=== PATIENT | female | born 1960 | race Caucasian/White ===

== ENCOUNTER 2018-02-24 04:47 | Emergency (ER) | payer MEDICAID, MEDICARE ==
[2018-02-24] MEDS ORDERED: BENZONATATE 100 MG CAPSULE PO ONE (06:31)
--- NOTE | 2018-02-24 07:02 | ER Document Report ---
ED General - General Chief Complaint: Cough Stated Complaint: COUGH Time Seen by Provider: 02/24/18 06:08 TRAVEL OUTSIDE OF THE [place] IN LAST 30 DAYS: No - HPI Patient complains to provider of: Cough Notes: Cough ongoing for the last 24 hours patient states possibly having a fever at home feeling hot however no temperature was taken. Patient states white sputum patient does smoke approximately half pack to a pack a day. Patient denies any recent travel denies any recent antibiotics. Denies any past medical history denies chills night sweats nausea vomiting denies any sick contacts of her was recently in the hospital receiving daily dialysis. Patient is currently upon my evaluation states she is having a little bit of sinus congestion and postnasal drip. - Related Data Allergies/Adverse Reactions: penicillin G Allergy (Verified 02/24/18 06:29) Past Medical History - Social History Smoking Status: Current Every Day Smoker Chew tobacco use (# tins/day): No Frequency of alcohol use: None Drug Abuse: None Family History: Reviewed & Not Pertinent Patient has suicidal ideation: No Patient has homicidal ideation: No Renal/ Medical History: Denies: Hx Peritoneal Dialysis Musculoskeltal Medical History: Reports Hx Arthritis Past Surgical History: Reports: Hx Cholecystectomy Review of Systems - Review of Systems Constitutional: No symptoms reported EENT: No symptoms reported Cardiovascular: No symptoms reported Respiratory: Cough Gastrointestinal: No symptoms reported Genitourinary: No symptoms reported Female Genitourinary: No symptoms reported Musculoskeletal: No symptoms reported Skin: No symptoms reported Hematologic/Lymphatic: No symptoms reported Neurological/Psychological: No symptoms reported -: Yes All other systems reviewed and negative Physical Exam - Vital signs Vitals: Temp Pulse Resp BP Pulse Ox 98.7 F 63 18 136/70 H 95 02/24/18 04:56 02/24/18 04:56 02/24/18 04:56 02/24/18 04:56 02/24/18 04:56 Interpretation: Normal - General General appearance: Appears well, Alert - HEENT Head: Normocephalic, Atraumatic Eyes: Normal Pupils: PERRL - Respiratory Respiratory status: No respiratory distress Chest status: Nontender Breath sounds: Normal Chest palpation: Normal - Cardiovascular Rhythm: Regular Heart sounds: Normal auscultation Murmur: No - Abdominal Inspection: Normal Distension: No distension Bowel sounds: Normal Tenderness: Nontender Organomegaly: No organomegaly - Back Back: Normal, Nontender - Extremities General upper extremity: Normal inspection, Nontender, Normal color, Normal ROM , Normal temperature General lower extremity: Normal inspection, Nontender, Normal color, Normal ROM , Normal temperature, Normal weight bearing. No: Remi's sign - Neurological Neuro grossly intact: Yes Cognition: Normal Orientation: AAOx4 Abhishek Coma Scale Eye Opening: Spontaneous [place] Coma Scale Verbal: Oriented Abhishek Coma Scale Motor: Obeys Commands [place] Coma Scale Total: 15 Speech: Normal Motor strength normal: LUE, RUE, LLE, RLE Sensory: Normal - Psychological Associated symptoms: Normal affect, Normal mood - Skin Skin Temperature: Warm Skin Moisture: Dry Skin Color: Normal Course - Re-evaluation Re-evalutation: 02/24/18 07:02 Patient's lungs are clear patient is very concerned she may have pneumonia. History of subjective fevers will check chest x-ray otherwise do think patient more likely has sinus drainage causing her symptoms patient pending x-ray 02/24/18 13:31 Patient would continue a cough and some sputum production. Concern for underlying bronchitis due to the patient's significant smoking history. Will treat with Zithromax bronchodilators and prednisone. Patient discharged home - Vital Signs Vital signs: Temp Pulse Resp BP Pulse Ox 98.4 F 55 L 18 123/67 95 02/24/18 07:52 02/24/18 07:52 02/24/18 07:52 02/24/18 07:52 02/24/18 07:52 Discharge - Discharge Clinical Impression: Bronchitis Condition: Stable Disposition: HOME, SELF-CARE Instructions: Bronchitis ([facility]) Additional Instructions: No signs of pneumonia on chest x-ray. Would recommend taking medications as prescribed to believe you have possibly underlying bronchitis from nasal drip and smoking. Please stop smoking return to the ER if symptoms worsen may take Tylenol Motrin for pain fever also recommend taking [id number] honey for cough suppression Prescriptions: Benzonatate [Tessalon Perle 100 mg Capsule] 100 mg PO Q8HP PRN #40 cap PRN Reason: Azithromycin [Zithromax 250 mg Tablet] 250 mg PO DAILY #4 tablet Prednisone [Deltasone 20 mg Tablet] 3 tab PO DAILY 5 Days tablet Forms: Smoking Cessation Education, Return to Work Referrals: EL SARKAR MD [Primary Care Provider] - Follow up as needed
[2018-02-24] MEDS ORDERED: ALBUTEROL SULFATE HFA (90 MCG/PUFF) 8 GM MDI (1 MDI/ER DISP) IH ONE (07:52)
[2018-02-24 07:53] VITALS: BP 123/67
[2018-02-24] MEDS ORDERED: AZITHROMYCIN 250 MG TABLET PO ONE (07:56)
--- NOTE | 2018-02-24 07:56 | RADIOLOGY REPORT (SQ) ---
EXAM DESCRIPTION: CHEST 2 VIEWS COMPLETED DATE/TIME: 02/24/2018 7:06 am REASON FOR STUDY: cough COMPARISON: None. EXAM PARAMETERS: NUMBER OF VIEWS: two views TECHNIQUE: Digital Frontal and Lateral radiographic views of the chest acquired. RADIATION DOSE: NA LIMITATIONS: none FINDINGS: LUNGS AND PLEURA: No opacities, masses or pneumothorax. No pleural effusion. MEDIASTINUM AND HILAR STRUCTURES: Slight symmetrical prominence of hilar regions -probably confluence of vascular markings. HEART AND VASCULAR STRUCTURES: Heart normal size. No evidence for failure. BONES: No acute findings. HARDWARE: None in the chest. OTHER: No other significant finding. IMPRESSION: No active infiltrates or effusions. Slight symmetrical hilar regions probably secondary to confluence of vascular markings. TECHNICAL DOCUMENTATION: JOB ID: [id number] [employer]- All Rights Reserved Reading location - IP/workstation name: [email or web address]
== END 2018-02-24 08:17 | disposition home or self-care (01) ==
LOC: ER 04:47
DX: J40 Bronchitis, not specified as acute or chronic (principal); F17.200 Nicotine dependence, unspecified, uncomplicated; Z88.0 Allergy status to penicillin; Z90.49 Acquired absence of other specified parts of digestive tract
CPT/HCPCS: 99283; 71046; A9270 ×2; J3490

== ENCOUNTER 2018-05-03 23:28 | Emergency (ER) | payer MEDICARE, MEDICAID ==
[2018-05-04] MEDS ORDERED: CLINDAMYCIN HCL 150 MG CAPSULE PO ONE (01:04)
[2018-05-04] MEDS ORDERED: IBUPROFEN 600 MG TABLET PO ONE (01:04)
--- NOTE | 2018-05-04 01:08 | ER Document Report ---
ED Oral Problem - General Chief Complaint: Jaw Pain Stated Complaint: JAW PAIN Time Seen by Provider: 05/04/18 00:58 Notes: The patient is a 57-year-old female who presents with mild swelling of her left jaw. She saw her dentist last week for similar symptoms and is scheduled for a cleaning tomorrow. She said the swelling has slightly worsened. Denies difficulty swallowing, tongue elevation, dental pain, trismus, fevers or rash. TRAVEL OUTSIDE OF THE [place] IN LAST 30 DAYS: No - Related Data Allergies/Adverse Reactions: adalimumab [From Humira] Allergy (Verified 05/03/18 23:34) etanercept [From Enbrel] Allergy (Verified 05/03/18 23:34) penicillin G Allergy (Verified 02/24/18 06:29) Past Medical History - General Information source: Patient - Social History Smoking Status: Current Every Day Smoker Chew tobacco use (# tins/day): No Frequency of alcohol use: None Drug Abuse: None Family History: Reviewed & Not Pertinent Patient has suicidal ideation: No Patient has homicidal ideation: No Renal/ Medical History: Denies: Hx Peritoneal Dialysis Musculoskeletal Medical History: Reports Hx Arthritis Past Surgical History: Reports: Hx Cholecystectomy Review of Systems - Review of Systems Constitutional: denies: Chills, Fever EENT: Mouth pain, Mouth swelling. denies: Throat swelling Cardiovascular: denies: Chest pain Respiratory: denies: Hurts to breathe Physical Exam - Vital signs Vitals: Temp Pulse Resp BP Pulse Ox 98.6 F 62 16 152/85 H 96 05/03/18 23:38 05/03/18 23:38 05/03/18 23:38 05/03/18 23:38 05/03/18 23:38 - Notes Notes: PHYSICAL EXAMINATION: GENERAL: Well-appearing, well-nourished and in no acute distress. HEAD: Atraumatic, normocephalic. EYES: Pupils equal round and reactive to light, extraocular movements intact, sclera anicteric, conjunctiva are normal. ENT: nares patent, oropharynx clear without exudates. Mild swelling of left lower jaw. Poor dentition, but no intraoral abscess seen. Moist mucous membranes. NECK: Normal range of motion, supple with small left-sided anterior cervical lymphadenopathy LUNGS: Breath sounds clear to auscultation bilaterally and equal. No wheezes rales or rhonchi. HEART: Regular rate and rhythm without murmurs ABDOMEN: Soft, nontender, normoactive bowel sounds. No guarding, no rebound. No masses appreciated. EXTREMITIES: Normal range of motion, no pitting or edema. No cyanosis. NEUROLOGICAL: Cranial nerves grossly intact. Normal speech, normal gait. Normal sensory and motor exams. SKIN: Warm, Dry, normal turgor, no rashes or lesions noted. Course - Re-evaluation Re-evalutation: Patient has no evidence of airway obstruction. Her symptoms are not consistent with mastoiditis with Maximo's angina. Will treat suspected dental abscess with clindamycin and follow-up with dentist this week. - Vital Signs Vital signs: Temp Pulse Resp BP Pulse Ox 97.5 F 57 L 16 154/85 H 94 05/04/18 01:23 05/04/18 01:23 05/04/18 01:23 05/04/18 01:23 05/04/18 01:23 Discharge - Discharge Clinical Impression: Jaw pain Condition: Stable Disposition: HOME, SELF-CARE Additional Instructions: Take the antibiotics and use Motrin as prescribed. Keep your appointment with the dentist this week. Prescriptions: Ibuprofen [Motrin 600 mg Tablet] 600 mg PO Q8HP PRN #20 tablet PRN Reason: Clindamycin HCl 300 mg PO Q8H 7 Days capsule Forms: Elevated Blood Pressure Referrals: EL SARKAR MD [Primary Care Provider] - Follow up as needed
[2018-05-04 01:27] VITALS: BP 154/85
== END 2018-05-04 01:27 | disposition home or self-care (01) ==
LOC: ER 23:28
DX: R68.84 Jaw pain (principal); R22.0 Localized swelling, mass and lump, head; F17.200 Nicotine dependence, unspecified, uncomplicated; Z88.8 Allergy status to other drugs, medicaments and biological substances; Z88.0 Allergy status to penicillin
CPT/HCPCS: 99283; A9270 ×2

== ENCOUNTER 2018-06-11 20:44 | Emergency (ER) | payer MEDICARE, MEDICAID ==
--- NOTE | 2018-06-11 23:24 | ER Document Report ---
ED Medical Screen (RME) - General Chief Complaint: Diarrhea Stated Complaint: DIARRHEA Time Seen by Provider: 06/11/18 23:01 Mode of Arrival: Ambulatory Information source: Patient Notes: Patient is a 57-year-old female who presents with chief complaint of diarrhea over the last 5 days. Patient reports associated nausea but denies any vomiting or fever. Patient reports she is going multiple times daily and describes the diarrhea as white, with mucus present and what appears to be noodles in it. Denies any blood in the stool. Denies any recent antibiotic use. Exam: Mild tenderness to palpation across the mid abdomen. I have greeted and performed a rapid initial assessment of this patient. A comprehensive ED assessment and evaluation of the patient, analysis of test results and completion of the medical decision making process will be conducted by additional ED providers. Dictation of this chart was performed using voice recognition software; therefore, there may be some unintended grammatical errors. TRAVEL OUTSIDE OF THE [place] IN LAST 30 DAYS: No - Related Data Allergies/Adverse Reactions: adalimumab [From Humira] Allergy (Verified 05/03/18 23:34) etanercept [From Enbrel] Allergy (Verified 05/03/18 23:34) penicillin G Allergy (Verified 02/24/18 06:29) Past Medical History Renal/ Medical History: Denies: Hx Peritoneal Dialysis Musculoskeltal Medical History: Reports Hx Arthritis Past Surgical History: Reports: Hx Cholecystectomy Physical Exam - Vital signs Vitals: Temp Pulse Resp BP Pulse Ox 99.7 F 72 16 125/64 97 06/11/18 21:05 06/11/18 21:05 06/11/18 21:05 06/11/18 21:05 06/11/18 21:05 Course - Vital Signs Vital signs: Temp Pulse Resp BP Pulse Ox 99.7 F 72 16 125/64 97 06/11/18 21:05 06/11/18 21:05 06/11/18 21:05 06/11/18 21:05 06/11/18 21:05 Doctor's Discharge - Discharge Referrals: EL SARKAR MD [Primary Care Provider] - Follow up as needed
[2018-06-11 23:44] LABS: ABSOLUTE BASOPHILS # (AUTO) 0.1 10^3/uL (0.0-0.2); ABSOLUTE EOSINOPHILS # (AUTO) 0.2 10^3/uL (0.0-0.6); ABSOLUTE NEUT (AUTO) 6.7 10^3/uL (1.7-8.2); BASOPHILS % (AUTO) 1.1 % (0-2); EOSINOPHILS % (AUTO) 1.4 % (0-6); HEMATOCRIT 45.3 % (36.0-47.0); HEMOGLOBIN 14.9 g/dL (12.0-15.5); MEAN CORPUSCULAR HEMOGLOBIN 29.8 pg (27.0-33.4); MEAN CORPUSCULAR VOLUME 90 fl (80-97); MONOCYTES % (AUTO) 8.2 % (3-13); PLATELET COUNT 299 10^3/uL (150-450); RED BLOOD COUNT 5.01 10^6/uL (3.72-5.28); RED CELL DISTRIBUTION WIDTH 14.5 % (11.5-14.0); SEGMENTED NEUTROPHILS % (AUTO) 56.3 % (42-78); TOTAL CELLS COUNTED % (AUTO) 100 %
[2018-06-12 00:05] LABS: ALANINE AMINOTRANSFERASE 26 U/L (9-52); ALBUMIN 4.3 g/dL (3.5-5.0); ALKALINE PHOSPHATASE 80 U/L (38-126); ANION GAP 9 (5-19); ASPARTATE AMINO TRANSFERASE 19 U/L (14-36); BILIRUBIN,DIRECT 0.3 mg/dL (0.0-0.4); BILIRUBIN,TOTAL 0.3 mg/dL (0.2-1.3); BLOOD UREA NITROGEN 19 mg/dL (7-20); CALCIUM 9.8 mg/dL (8.4-10.2); CARBON DIOXIDE 29 mmol/L (22-30); CHLORIDE 105 mmol/L (98-107); GLUCOSE 98 mg/dL (75-110); LIPASE 52.6 U/L (23-300); POTASSIUM 4.8 mmol/L (3.6-5.0); SODIUM 143.4 mmol/L (137-145); TOTAL PROTEIN 7.1 g/dL (6.3-8.2)
[2018-06-12] MEDS ORDERED: METRONIDAZOLE 500 MG TABLET PO ONE (01:31)
--- NOTE | 2018-06-12 01:32 | ER Document Report ---
ED General - General Chief Complaint: Diarrhea Stated Complaint: DIARRHEA Time Seen by Provider: 06/11/18 23:01 Mode of Arrival: Ambulatory Notes: Patient is a 57-year-old female presents with complaint of diarrhea. There is been ongoing for 5 days. No blood in her stool. She said sometimes her some stringy type things in her stool. She says it does not move and did not appear to be warms. She did just finish an antibiotic. She was on clindamycin due to a dental infection. Some abdominal pain that is permanent diffuse. No fevers. No vomiting. No other complaints at this time. Exposure to untreated water. She drinks only bottled water. No recent travel outside the country. TRAVEL OUTSIDE OF THE [place] IN LAST 30 DAYS: No - Related Data Allergies/Adverse Reactions: adalimumab [From Humira] Allergy (Verified 05/03/18 23:34) etanercept [From Enbrel] Allergy (Verified 05/03/18 23:34) penicillin G Allergy (Verified 02/24/18 06:29) Past Medical History - General Information source: Patient - Social History Smoking Status: Unknown if Ever Smoked Frequency of alcohol use: None Drug Abuse: None Family History: Reviewed & Not Pertinent Renal/ Medical History: Denies: Hx Peritoneal Dialysis Musculoskeletal Medical History: Reports Hx Arthritis Past Surgical History: Reports: Hx Cholecystectomy Review of Systems - Review of Systems Notes: My Normal Review Basic REVIEW OF SYSTEMS: CONSTITUTIONAL : Denies fever, chills, or sweats. Denies recent illness. EENT: Denies eye, ear, throat, or mouth pain or symptoms. Denies nasal or sinus congestion. RESPIRATORY: Denies cough, cold, or chest congestion. Denies shortness of breath, difficulty breathing, or wheezing. GASTROINTESTINAL: Abdominal pain. diarrhea. GENITOURINARY: Denies difficulty urinating, painful urination, burning, frequency, or blood in urine. MUSCULOSKELETAL: Denies neck or back pain or joint pain or swelling. SKIN: Denies rash or skin lesions. NEUROLOGICAL: Denies altered mental status or loss of consciousness. Denies headache. Denies weakness or paralysis or loss of use of either side. Denies problems with gait or speech. Denies sensory or motor loss. ALL OTHER SYSTEMS REVIEWED AND NEGATIVE. Physical Exam - Vital signs Vitals: Temp Pulse Resp BP Pulse Ox 99.7 F 72 16 125/64 97 06/11/18 21:05 06/11/18 21:05 06/11/18 21:05 06/11/18 21:05 06/11/18 21:05 - Notes Notes: General Appearance: Well nourished, alert, cooperative, no acute distress, no obvious discomfort. Vitals: reviewed, See vital signs table. Head: no swelling or tenderness to the head Eyes: PERRL, EOMI, Conjuctiva clear Mouth: No decreasd moisture Lungs: No wheezing, No rales, No rhonci, No accessory muscle use, good air exchange bilaterally. Heart: Normal rate, Regular rythm, No murmur, no rub Abdomen: Normal BS, soft, No rigidity, mild abdominal tenderness diffuse that is slightly worse on the left, No guarding, no rebound Extremities: strength 5/5 in all extremities, good pulses in all extremities, no swelling or tenderness in the extremities, no edema. Skin: warm, dry, appropriate color, no rash Neuro: speech clear, oriented x 3, normal affect, responds appropriately to questions. Course - Re-evaluation Re-evalutation: 06/12/18 02:43 Patient's history suggests that this could be C. difficile infection causing diarrhea being that she just finished a course of clindamycin. Patient clinically looks very well. Laboratory findings are unremarkable. She was unable to give a stool sample here and therefore I have ordered a stool culture , ova and parasites, and C. difficile testing to be done out patiently. I have written a prescription for this. I informed her return to ER immediately if she has fevers, worsening abdominal pain, any blood in her stool, or if she feels that she is worsening in any way. Patient agrees with plan will be discharged home. Dictation of this chart was performed using voice recognition software; therefore, there may be some unintended grammatical errors. - Vital Signs Vital signs: Temp Pulse Resp BP Pulse Ox 98.2 F 72 18 144/70 H 97 06/12/18 01:50 06/11/18 21:05 06/12/18 01:50 06/12/18 01:50 06/11/18 21:05 - Laboratory Result Diagrams: 06/11/18 23:24 06/11/18 23:24 Laboratory results interpreted by me: 06/11/18 23:24 WBC 12.0 H RDW 14.5 H Discharge - Discharge Additional Instructions: I suspect you have a bacterial infection in your bowel called C.Diff. I have started you on a new antibiotic. Please take this antibiotic as prescribed. Please still obtain a stool sample and bring it in the provided specimen cup to the hospital lab with the prescription. Please call the culture call back number ([phone]) if you have not gotten your results after 2 days. Please return to the Er immediately if you develop fevers, blood in your stool, worsening pain, or feel that you are worsening in any way. Prescriptions: Metronidazole [Flagyl 500 mg Tablet] 500 mg PO Q6H #28 tablet Forms: Follow-Up Laboratory Testing
[2018-06-12 01:52] VITALS: BP 144/70
== END 2018-06-12 01:50 | disposition home or self-care (01) ==
LOC: ER 20:44
DX: R19.7 Diarrhea, unspecified (principal); R10.9 Unspecified abdominal pain
CPT/HCPCS: 36415; 80053; 83690; 85025; 99284

== ENCOUNTER 2018-12-17 17:01 | Emergency (ER) | payer MEDICARE, MEDICAID ==
[2018-12-17 17:31] VITALS: BP 154/87
--- NOTE | 2018-12-17 18:16 | EKG REPORT ---
SEVERITY:- BORDERLINE ECG - SINUS RHYTHM PROBABLE LEFT ATRIAL ABNORMALITY : Confirmed by: Mi Peoples MD 17-Dec-2018 18:15:47
[2018-12-17] MEDS ORDERED: FENTANYL CITRATE INJ/PF 100 MCG/2 ML AMPUL IV ONE (19:59)
[2018-12-17] MEDS ORDERED: KETOROLAC TROMETHAMINE INJ/PF 30 MG/1 ML SDV IV ONE (19:59)
--- NOTE | 2018-12-17 20:00 | ER Document Report ---
ED Medical Screen (RME) - General Chief Complaint: Arm Pain Stated Complaint: ARM PAIN Time Seen by Provider: 12/17/18 19:57 Primary Care Provider: JEREMI WASHBURN DO [Primary Care Provider] - Follow up as needed Mode of Arrival: Ambulatory Information source: Patient Notes: This is a 58-year-old female with a history of psoriatic arthritis, drug-induced lupus who presents to the emergency room with worsening neck pain with left upper extremity radiculopathy. Patient did have trigger point injections a week ago and her symptoms have been worsening. She denies any fever, chills, nausea vomiting. TRAVEL OUTSIDE OF THE [place] IN LAST 30 DAYS: No - Related Data Allergies/Adverse Reactions: adalimumab [From Humira] Allergy (Verified 05/03/18 23:34) etanercept [From Enbrel] Allergy (Verified 05/03/18 23:34) penicillin G Allergy (Verified 02/24/18 06:29) Past Medical History - Social History Frequency of alcohol use: None Drug Abuse: None Renal/ Medical History: Denies: Hx Peritoneal Dialysis Musculoskeltal Medical History: Reports Hx Arthritis Past Surgical History: Reports: Hx Cholecystectomy Physical Exam - Vital signs Vitals: Temp Pulse Resp BP Pulse Ox 98.8 F 67 20 154/87 H 95 12/17/18 17:30 12/17/18 17:30 12/17/18 17:30 12/17/18 17:30 12/17/18 17:30 Course - Vital Signs Vital signs: Temp Pulse Resp BP Pulse Ox 98.8 F 67 20 154/87 H 95 12/17/18 17:30 12/17/18 17:30 12/17/18 17:30 12/17/18 17:30 12/17/18 17:30 Doctor's Discharge - Discharge Referrals: JEREMI WASHBURN DO [Primary Care Provider] - Follow up as needed
[2018-12-17 20:37] LABS: ABSOLUTE BASOPHILS # (AUTO) 0.2 10^3/uL (0.0-0.2); ABSOLUTE EOSINOPHILS # (AUTO) 0.2 10^3/uL (0.0-0.6); ABSOLUTE LYMPHOCYTES (AUTO) 3.9 10^3/uL (0.5-4.7); ABSOLUTE MONOCYTES (AUTO) 0.9 10^3/uL (0.1-1.4); ABSOLUTE NEUT (AUTO) 10.5 10^3/uL (1.7-8.2); BASOPHILS % (AUTO) 1.2 % (0-2); EOSINOPHILS % (AUTO) 1.2 % (0-6); HEMATOCRIT 45.2 % (36.0-47.0); HEMOGLOBIN 15.3 g/dL (12.0-15.5); LYMPHOCYTES % (AUTO) 24.6 % (13-45); MEAN CORPUSCULAR HEMOGLOBIN 30.6 pg (27.0-33.4); MEAN CORPUSCULAR HGB CONC 33.7 g/dL (32.0-36.0); MEAN CORPUSCULAR VOLUME 91 fl (80-97); PLATELET COUNT 285 10^3/uL (150-450); RED BLOOD COUNT 4.98 10^6/uL (3.72-5.28); TOTAL CELLS COUNTED % (AUTO) 100 %; WHITE BLOOD COUNT 15.7 10^3/uL (4.0-10.5)
[2018-12-17 21:10] LABS: ALANINE AMINOTRANSFERASE 28 U/L (9-52); ALBUMIN 4.4 g/dL (3.5-5.0); ALKALINE PHOSPHATASE 88 U/L (38-126); ANION GAP 8 (5-19); ASPARTATE AMINO TRANSFERASE 20 U/L (14-36); BILIRUBIN,DIRECT 0.3 mg/dL (0.0-0.4); BILIRUBIN,TOTAL 0.3 mg/dL (0.2-1.3); BLOOD UREA NITROGEN 21 mg/dL (7-20); CALCIUM 10.3 mg/dL (8.4-10.2); CARBON DIOXIDE 33 mmol/L (22-30); CHLORIDE 101 mmol/L (98-107); GLUCOSE 102 mg/dL (75-110); POTASSIUM 5.2 mmol/L (3.6-5.0); SODIUM 141.5 mmol/L (137-145); TOTAL PROTEIN 6.9 g/dL (6.3-8.2)
--- NOTE | 2018-12-17 22:28 | RADIOLOGY REPORT (SQ) ---
EXAM DESCRIPTION: MR CERVICAL SPINE WITHOUT IV CONTRAST COMPLETED DATE/TME: 12/17/2018 19:57 CLINICAL HISTORY: 58 years, Female, left radiculopathy COMPARISON: None. TECHNIQUE: 100 Images stored on PACS. LIMITATIONS: None. FINDINGS: Vertebral body height and alignment is preserved. There is no suspicious marrow signal. Normal signal in the visualized spinal cord. Limited evaluation of extraspinal anatomic structures is unremarkable. There is osteophytic spurring and minor endplate degenerative change at C6/C7. There is a superimposed left paracentral/foraminal disc extrusion, with extruded disc material extending slightly cephalad to the disc space. This results in impression upon the adjacent cord and severe narrowing of the proximal left neural foramen. Remaining disc spaces are preserved. IMPRESSION: Large left paracentral/foraminal disc extrusion at C6/C7, as above. copyright 2010 [employer]- All Rights Reserved
[2018-12-17] MEDS ORDERED: ACETAMINOPHEN 325 MG TABLET PO ONE (23:31)
--- NOTE | 2018-12-17 23:37 | ER Document Report ---
ED General - General Chief Complaint: Arm Pain Stated Complaint: ARM PAIN Time Seen by Provider: 12/17/18 19:57 Primary Care Provider: SURESH OSORIO MD [COMMUNITY BASED STAFF] - Follow up tomorrow JEREMI WASHBURN DO [Primary Care Provider] - Follow up as needed Mode of Arrival: Ambulatory Notes: 58-year-old female with a history of psoriatic arthritis, drug-induced lupus who presents to the emergency room with worsening neck pain with left upper extremity radiculopathy. Patient did have trigger point injections a week ago and her symptoms have been worsening. She complains of severe pain in her left arm but denies weakness. She denies any fever, chills, nausea vomiting. TRAVEL OUTSIDE OF THE [place] IN LAST 30 DAYS: No - Related Data Allergies/Adverse Reactions: adalimumab [From Humira] Allergy (Verified 05/03/18 23:34) etanercept [From Enbrel] Allergy (Verified 05/03/18 23:34) penicillin G Allergy (Verified 02/24/18 06:29) Past Medical History - General Information source: Patient - Social History Smoking Status: Current Every Day Smoker Frequency of alcohol use: None Drug Abuse: None Family History: Reviewed & Not Pertinent Patient has suicidal ideation: No Patient has homicidal ideation: No Renal/ Medical History: Denies: Hx Peritoneal Dialysis Musculoskeletal Medical History: Reports Hx Arthritis Past Surgical History: Reports: Hx Cholecystectomy Review of Systems - Review of Systems Constitutional: See HPI EENT: No symptoms reported Cardiovascular: See HPI Respiratory: See HPI Gastrointestinal: See HPI Genitourinary: No symptoms reported Female Genitourinary: No symptoms reported Musculoskeletal: See HPI Skin: No symptoms reported Hematologic/Lymphatic: No symptoms reported Neurological/Psychological: See HPI Physical Exam - Vital signs Vitals: Temp Pulse Resp BP Pulse Ox 98.8 F 67 20 154/87 H 95 12/17/18 17:30 12/17/18 17:30 12/17/18 17:30 12/17/18 17:30 12/17/18 17:30 - Notes Notes: PHYSICAL EXAMINATION: Reviewed vital signs and charting by RN GENERAL: Alert, interacts well. Mild distress. HEAD: Normocephalic, atraumatic. EYES: Pupils equal, round. Extraocular movements intact. ENT: Oral mucosa moist, tongue midline. NECK: Full range of motion. Supple. Trachea midline. EXTREMITIES: Favoring her left arm and holding it, complains of constant pain, she states she had some tingling 5/5 strength in left upper extremity. BACK: Tenderness to palpation at level of C6-C7. thoracic, lumbar midline tenderness. No saddle anesthesia, normal distal neurovascular exam. NEUROLOGICAL: Alert and oriented x3. Normal speech. Normal distal neurovascular exam left upper extremity PSYCH: Normal affect, normal mood. SKIN: Warm, dry, normal turgor. No rashes or lesions noted. Course - Re-evaluation Re-evalutation: 12/17/18 23:44 Patient appears in mild distress. Motor and sensory intact left upper extremity. Strength 5/5. No fevers. MRI cervical showed a large left paracentral disc protrusion. I discussed with patient findings and gave her strict return precautions with referral to a neurosurgeon. I was going to give her 1 more time and reiterated everything we talked about to ensure she understood but she left without signing paperwork. 12/17/18 23:45 12/17/18 23:45 - Vital Signs Vital signs: Temp Pulse Resp BP Pulse Ox 98.8 F 67 20 154/87 H 95 12/17/18 17:30 12/17/18 17:30 12/17/18 17:30 12/17/18 17:30 12/17/18 17:30 - Laboratory Result Diagrams: 12/17/18 20:23 12/17/18 20:23 Laboratory results interpreted by me: 12/17/18 12/17/18 20:23 20:23 WBC 15.7 H RDW 15.0 H Absolute Neutrophils 10.5 H Potassium 5.2 H Carbon Dioxide 33 H BUN 21 H Calcium 10.3 H Discharge - Discharge Clinical Impression: Herniated cervical intervertebral disc, Radicular pain in left arm Condition: Good Disposition: HOME, SELF-CARE Instructions: Herniated Disc ([facility]) Additional Instructions: You were seen in the emergency department this evening for a herniated disc at C6-C7. Is important that you follow-up with neurosurgery tomorrow and make an appointment to see them. Please refrain from getting any further trigger point injections at this time from pain management until he can talk to neurosurgery. You can take pain medications you have at home through pain management. If you are able to, please take Motrin 600 mg every 6 hours. You can take up to thousand milligrams of Tylenol every 6 hours. Please note that your pain medication may have Tylenol in it so adjust accordingly. If you develop acute weakness, numbness, fever, or paralysis in the arm please immediately return to the emergency department. Referrals: JEREMI WASHBURN DO [Primary Care Provider] - Follow up as needed SURESH OSORIO MD [COMMUNITY BASED STAFF] - Follow up tomorrow
== END 2018-12-17 23:00 | disposition home or self-care (01) ==
LOC: ER 17:01
DX: M50.123 Cervical disc disorder at C6-C7 level with radiculopathy (principal); M79.602 Pain in left arm; F17.200 Nicotine dependence, unspecified, uncomplicated; Z88.0 Allergy status to penicillin; Z90.49 Acquired absence of other specified parts of digestive tract
CPT/HCPCS: 93005; 99284; 96374; 96375; 36415; 85025; 80053; 72141; 93010; J3010; J1885

== ENCOUNTER 2019-01-11 20:02 | Emergency (ER) | payer MEDICARE, MEDICAID ==
--- NOTE | 2019-01-11 21:38 | RADIOLOGY REPORT (SQ) ---
EXAM DESCRIPTION: XR CHEST 2 VIEWS COMPLETED DATE/TME: 01/11/2019 00:00 CLINICAL HISTORY: 58 years, Female, cough COMPARISON: Prior chest x-ray 02/24/2018 NUMBER OF VIEWS: 2 TECHNIQUE: Frontal and lateral views of the chest LIMITATIONS: None. FINDINGS: The heart size is normal. Subsegmental atelectasis in the right lung base. Lungs are otherwise clear. No pneumothorax IMPRESSION: No acute cardiopulmonary process copyright 2010 [employer]- All Rights Reserved
--- NOTE | 2019-01-12 00:50 | ER Document Report ---
HPI - HPI Patient complains to provider of: Cough and congestion Time Seen by Provider: 01/12/19 00:37 Pain Level: 3 Context: Patient is a 50-year-old female presents to the emergency department for 3 days of generalized cough and congestion. Patient states she has had white sputum with her generalized cough. Patient is denying any fever, nausea, vomiting. States she did have 2 episodes of diarrhea but is denying any abdominal pain. Patient states she smokes 10 cigarettes a day. States she is scheduled to have back surgery on . Patient states she wants to "make sure I can still have surgery." Patient is denying any chest pain, shortness of breath. States when she lies flat in bed she feels as though her nose gets clogged and she cannot breathe out of her nose. Past medical history: Arthritis, chronic back pain Medications: Multiple, patient is unsure of exact names allergies: Humira, bees, penicillin - CARDIOVASCULAR Cardiovascular: DENIES: Chest pain - RESPIRATORY Respiratory: REPORTS: Coughing. DENIES: Trouble Breathing Past Medical History - General Information source: Patient - Social History Smoking Status: Current Every Day Smoker Frequency of alcohol use: None Drug Abuse: None Family History: Reviewed & Not Pertinent Patient has suicidal ideation: No Patient has homicidal ideation: No Renal/ Medical History: Denies: Hx Peritoneal Dialysis Musculoskeletal Medical History: Reports Hx Arthritis Past Surgical History: Reports: Hx Cholecystectomy Vertical Provider Document - CONSTITUTIONAL Agree With Documented VS: Yes Notes: GENERAL: Alert, interacts well. No acute distress. HEAD: Normocephalic, atraumatic. No frontal or maxillary sinus tenderness noted EYES: Pupils equal, round, and reactive to light. Extraocular movements intact. ENT: Oral mucosa moist, tongue midline. Nares patent, no nasal septal hematoma, TM's intact, Nonerythematous, nonbulging bilaterally. Pharynx within normal limits no palatal petechiae or exudate noted NECK: Full range of motion. Supple. Trachea midline. No lymphadenopathy appreciated LUNGS: Clear to auscultation bilaterally, no wheezes, rales, or rhonchi. No respiratory distress. HEART: Regular rate and rhythm. No murmur ABDOMEN: Soft, non-tender. Non-distended. Bowel sounds present in all 4 quadrants. EXTREMITIES: Moves all 4 extremities spontaneously. No edema, normal radial and dorsalis pedis pulses bilaterally. No cyanosis. BACK: no cervical, thoracic, lumbar midline tenderness. No saddle anesthesia, normal distal neurovascular exam. NEUROLOGICAL: Alert and oriented x3. Normal speech. cranial nerves II through XII grossly intact. PSYCH: Normal affect, normal mood. SKIN: Warm, dry, normal turgor. No rashes or lesions noted. - INFECTION CONTROL TRAVEL OUTSIDE OF THE [place] IN LAST 30 DAYS: No Course - Re-evaluation Re-evalutation: 01/12/19 00:52 patient's chest x-ray shows no signs of pneumonia, pneumothorax, rib fractures. Patient's vitals have been stable throughout her time in the emergency room. Her lung sounds are clear and equal in all saini. Discussed likely viral diagnosis and follow-up with her surgeon for continued care. Patient voices understanding is stable for discharge. - Vital Signs Vital signs: Temp Pulse Resp BP Pulse Ox 98.4 F 62 22 H 152/72 H 95 01/11/19 23:52 01/11/19 23:52 01/11/19 23:52 01/11/19 23:52 01/11/19 23:52 Discharge - Discharge Clinical Impression: Upper respiratory infection Qualifiers: URI type: unspecified viral URI Qualified Code(s): J06.9 - Acute upper respiratory infection, unspecified Condition: Stable Disposition: HOME, SELF-CARE Instructions: Viral Syndrome ([facility]), Upper Respiratory Illness ([facility]) Additional Instructions: As we discussed you have been seen and treated in the emergency department for an upper respiratory infection. These are typically caused by viruses and do not respond to antibiotics. Please make sure you follow-up with your primary care provider in the next 24-48 hours. Please also make sure you stay well- hydrated and take [id number] Tylenol and Motrin for your generalized fevers or body aches. Please return to the emergency room should you have any other concerning symptoms. Prescriptions: Benzonatate [Tessalon Perles 100 mg Capsule] 100 mg PO Q8HP PRN #40 capsule PRN Reason: Mometasone Furoate [Nasonex] 1 spray NS Q12 #1 spray.pump Forms: Return to Work
[2019-01-12 01:05] VITALS: BP 153/73
== END 2019-01-12 01:05 | disposition home or self-care (01) ==
LOC: ER 20:02
DX: J06.9 Acute upper respiratory infection, unspecified (principal); R68.89 Other general symptoms and signs; F17.200 Nicotine dependence, unspecified, uncomplicated; R19.7 Diarrhea, unspecified; F17.210 Nicotine dependence, cigarettes, uncomplicated; Z90.49 Acquired absence of other specified parts of digestive tract
CPT/HCPCS: 71046; 99284